=== PATIENT | male | born 2000 | race Caucasian/White ===

== ENCOUNTER 2021-12-06 17:39 | Outpatient (CLI) | payer OTHER, SELFPAY ==
[2021-12-06 22:37] LABS: Chlamydia DNA Amplified* NOT DETECTED (No Detected); GC DNA Amplified* NOT DETECTED (No Detected)
== END 2021-12-06 17:40 | disposition home or self-care (01) ==
PROVIDERS: Visit Provider Registered Nurse
DX: N50.811 Right testicular pain (principal); R31.9 Hematuria, unspecified
CPT/HCPCS: 87491; 87591